=== PATIENT | female | born 1965 | race African-American/Black ===

== ENCOUNTER 2017-06-11 00:15 | Emergency (ER) | payer SELFPAY ==
[~2017-06-11] VITALS: Ht 154.9 cm; Wt 72.0 kg
[2017-06-11 00:27] VITALS: BP 128/85; PULSE 95; RESP 18; TEMP 97.9; O2SAT 99
== END 2017-06-11 00:44 | disposition left against medical advice (07) ==
LOC: PHED 00:15
DX: M25.551 Pain in right hip (principal)
CPT/HCPCS: 99281